=== PATIENT | female | born 2000 ===

== ENCOUNTER → 2021-06-10 | Outpatient (CLI) | payer SELFPAY ==
[2021-06-11 07:09] LABS: HIV AB/P24 AG SCREEN Non Reactive (Non Reactive)
[2021-06-15 10:11] LABS: CHLAMYDIA BY NAA Negative (Negative); GONOCOCCUS BY NAA Negative (Negative); TRICH VAG BY NAA Negative (Negative)
== END ==
LOC: LAB SHORT 16:25
PROVIDERS: Physician Assistant Surgical
DX: Z72.51 High risk heterosexual behavior (principal); N76.0 Acute vaginitis
CPT/HCPCS: 86592; 87070; 87205; 87389; 87491; 87591; 87661